=== PATIENT | female | born 2005 | race Caucasian/White ===

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

== ENCOUNTER 2023-05-30 18:57 | Emergency (ER) | payer OTHER ==
[2023-05-30] MEDS ORDERED: HYDROcodone/Acetaminophen 10/325 mg Tablet ONE (20:04)
== END 2023-05-30 20:42 | disposition home or self-care (01) ==
LOC: CSHERS 18:57
DX: S83.411A Sprain of medial collateral ligament of right knee, initial encounter (principal); X50.9XXA Other and unspecified overexertion or strenuous movements or postures, initial encounter

== ENCOUNTER 2023-07-21 10:43 | Emergency (ER) | payer OTHER, SELFPAY ==
[2023-07-21] MEDS ORDERED: Ondansetron ODT 4 MG TAB ONE (11:22)
== END 2023-07-21 15:39 | disposition home or self-care (01) ==
LOC: CSHERS 10:43
DX: R11.2 Nausea with vomiting, unspecified (principal)
CPT/HCPCS: 99283; Q0162

== ENCOUNTER 2024-01-14 16:44 | Emergency (ER) | payer OTHER ==
[2024-01-14] MEDS ORDERED: Ketorolac Tromethamine 30 MG (1 mL) VIAL ONE (18:32)
[2024-01-14] MEDS ORDERED: Lidocaine 4% Patch TD SCH (18:45)
[2024-01-15] MEDS ORDERED: Transdermal Patch Removal TOP SCH (07:00)
== END 2024-01-14 19:25 | disposition home or self-care (01) ==
LOC: CSHERS 16:44
DX: M25.561 Pain in right knee (principal); Z55.6 Problems related to health literacy; Z75.3 Unavailability and inaccessibility of health-care facilities; W18.30XA Fall on same level, unspecified, initial encounter
CPT/HCPCS: 96372; 99283; J1885

== ENCOUNTER 2024-11-09 14:14 | Emergency (ER) | payer OTHER ==
[2024-11-09] MEDS ORDERED: Ibuprofen 200 MG TAB ONE (15:24)
== END 2024-11-09 16:58 | disposition home or self-care (01) ==
LOC: CSHERS 14:14
DX: M25.561 Pain in right knee (principal)

== ENCOUNTER 2025-07-10 18:54 | Emergency (ER) | payer OTHER ==
[2025-07-10] MEDS ORDERED: HYDROcodone/Acetaminophen 5/325 mg Tablet ONE (20:14)
== END 2025-07-10 20:15 | disposition home or self-care (01) ==
LOC: CSHERS 18:54
DX: M54.31 Sciatica, right side (principal); E66.9 Obesity, unspecified
CPT/HCPCS: 99283

== ENCOUNTER 2025-08-18 16:59 | Emergency (ER) | payer OTHER ==
[2025-08-18] MEDS ORDERED: Dexamethasone 10 MG/ML VIAL ONE (18:40)
== END 2025-08-18 19:26 | disposition home or self-care (01) ==
LOC: CSHERS 16:59
DX: J20.9 Acute bronchitis, unspecified (principal); R06.2 Wheezing
CPT/HCPCS: 36416; 71045; 87081; 87428; 87430; 94640; 94760; J1100